=== PATIENT | male | born 1950 ===

== ENCOUNTER 2024-03-06 07:00 | Day surgery (SDC) | payer MEDICARE ==
[2024-03-06] MEDS ORDERED: LACTATED RINGERS 1,000 ML BAG ONE (08:15)
[2024-03-06] MEDS ORDERED: PROPOFOL 10 MG/ML 20 ML VIAL IV ONE (08:26)
[2024-03-06] MEDS ORDERED: LIDOCAINE 1% INJ 10MG/ML (20 ML MDV) ONE (08:26)
--- NOTE | 2024-03-14 15:54 | PCN ---
PROCEDURE NOTE PROCEDURE PERFORMED: Colonoscopy. PREOPERATIVE DIAGNOSIS: Diarrhea. POSTOPERATIVE DIAGNOSIS: Diverticulosis. ANESTHESIA: MAC. DESCRIPTION OF PROCEDURE: The patient was placed on the endoscopy table in the lateral position. He received IV sedation. Digital rectal exam was performed. This revealed no abnormalities. The flexible colonoscope was then placed through the anus and passed throughout the entire colon. The ileocecal valve was visualized. The cecum, ascending, and transverse colon appeared normal. In the descending sigmoid colon, there were extensive diverticular changes. There was no evidence of diverticulitis. The scope was brought back to the rectum and this appeared normal. The scope was withdrawn from the patient. MMODL / IJN: [id number] /
== END 2024-03-06 09:15 ==
LOC: ORWHC2ENDO 07:00
PROVIDERS: ATTEND Surgery
DX: K57.30 Diverticulosis of large intestine without perforation or abscess without bleeding (principal); I10 Essential (primary) hypertension; E78.5 Hyperlipidemia, unspecified; G47.33 Obstructive sleep apnea (adult) (pediatric); E66.9 Obesity, unspecified; Z87.891 Personal history of nicotine dependence; Z79.899 Other long term (current) drug therapy
CPT/HCPCS: 45378

== ENCOUNTER → 2024-07-14 | Outpatient (CLI) | payer MEDICARE | END | disposition home or self-care (01) | LOC: LABWHC1 10:18 | PROVIDERS: ATTEND Family Medicine | DX: E11.59 Type 2 diabetes mellitus with other circulatory complications (principal) | CPT/HCPCS: 36415; 83036 ==